=== PATIENT | female | born 1970 | race African-American/Black ===

== ENCOUNTER 2025-01-26 14:31 | Inpatient (IN) | payer MEDICAID, OTHER ==
[~2025-01-26] VITALS: Ht 175.3 cm; Wt 109.1 kg
[2025-01-26] MEDS ORDERED: PROPOFOL 200MG/20ML VIAL IV ONE (15:30)
[2025-01-26] MEDS: SODIUM CHLORIDE 0.9% 1,000 ML IV ONE (16:45)
[2025-01-26] MEDS: KETOROLAC 15MG/ML VIAL IV SCH (16:46)
[2025-01-26] MEDS: HYDROCODONE/ACETAMINOPHEN 5/325MG TABLET PO SCH (16:56)
[2025-01-26 17:21] VITALS: O2SAT 100
[2025-01-26] MEDS: PROPOFOL 10 MG/ML 100 ML IV PRN (17:21)
[2025-01-26 22:30] VITALS: BP 123/72; PULSE 58; RESP 18; TEMP 37.0852
[2025-01-26 22:34] LABS: HCG SCREEN NEGATIVE
[2025-01-26] MEDS ORDERED: LORA10CA PO (23:47)
[2025-01-26] MEDS ORDERED: FERR-71 MT (23:48)
[2025-01-27] VITALS: BP 125/75; PULSE 59; RESP 20; TEMP 36; O2SAT 100
[2025-01-27] MEDS ORDERED: ONDANSETRON HCL 4MG/2ML INJ IV PRN ×2 (00:15→12:15)
[2025-01-27] MEDS: MORPHINE SULFATE 2 MG/ML INJ (NOT FOR IM USE) IV PRN (00:25)
[2025-01-27] MEDS ORDERED: NALOXONE HCL 0.4MG/ML VIAL IV PRN (00:30)
[2025-01-27 04:00] VITALS: BP 110/58; PULSE 59; RESP 20; TEMP 36.5; O2SAT 100
[2025-01-27 07:05] LABS: BASOPHILS % 0.6 % (0.0-2.0); EOSINOPHILS % 2.8 % (0.0-5.0); HEMATOCRIT. 34.2 % (36.0-48.0); HEMOGLOBIN. 10.4 g/dL (12.0-16.0); LYMPHOCYTES % 31.5 % (20.0-50.0); MEAN PLATELET VOLUME 9.2 fl (7.4-10.4); MONOCYTES % 7.7 % (2.0-8.0); NEUTROPHILS % 57.4 % (40.0-76.0); PLATELET 200 x1000/uL (130-400); RED BLOOD CELL COUNT 5.07 mill/uL (4.2-5.4); RED CELL DISTRIBUTION WIDTH 16.4 % (11.6-14.6)
[2025-01-27 07:15] LABS: ADD RBC MORPHOLOGY YES
[2025-01-27 07:37] LABS: CREATININE 0.7 mg/dL (0.6-1.0)
[2025-01-27 07:39] LABS: UREA NITROGEN BLOOD 8 mg/dL (9-23)
[2025-01-27 07:57] VITALS: BP 126/77; PULSE 71; RESP 18; TEMP 36.3; O2SAT 100
[2025-01-27] MEDS ORDERED: BUPIVACAINE HCL/PF 0.5% (5MG/ML) 10ML ONE (09:05)
[2025-01-27] MEDS ORDERED: VANCOMYCIN HCL 1GM VIAL ONE (09:05)
[2025-01-27] MEDS ORDERED: BUPIVACAINE HCL/PF 0.25% (2.5MG/ML) 10ML ONE (09:36)
[2025-01-27] MEDS ORDERED: ACETAMINOPHEN 1000MG/100ML 100 ML IV ONE (09:36)
[2025-01-27] MEDS ORDERED: FAMOTIDINE 20MG/2ML VIAL IV ONE (09:36)
[2025-01-27] MEDS ORDERED: MIDAZOLAM HCL 2 MG/2 ML VIAL ONE (09:42)
[2025-01-27] MEDS ORDERED: FENTANYL CITRATE/PF 50MCG/ML 2ML VIAL ONE (09:42)
[2025-01-27] MEDS ORDERED: HYDROMORPHONE HCL/PF 1MG/ML INJ ONE ×2 (10:06→11:11)
[2025-01-27] MEDS ORDERED: DOCUSATE SODIUM 100MG CAPSULE PO PRN (10:15)
[2025-01-27] MEDS ORDERED: IPRATROPIUM/ALBUTEROL 0.5-3(2.5)MG/3ML NEB HHN PRN (10:15)
[2025-01-27] MEDS ORDERED: ACETAMINOPHEN 325MG TABLET PO PRN (10:15)
[2025-01-27] MEDS: PANTOPRAZOLE SODIUM 40 MG/VIAL IV SCH (10:15)
[2025-01-27] MEDS ORDERED: ONDANSETRON HCL 4MG/2ML INJ ONE (11:04)
[2025-01-27] MEDS ORDERED: DEXAMETHASONE 4MG/ML 1ML VIAL ONE (11:04)
[2025-01-27] MEDS ORDERED: KETOROLAC 30MG/ML VIAL ONE (11:04)
[2025-01-27] MEDS ORDERED: CEFAZOLIN SODIUM 1000MG/VIAL ONE (11:05)
[2025-01-27] MEDS ORDERED: PROPOFOL 200MG/20ML VIAL IV ONE (11:10)
[2025-01-27] MEDS ORDERED: HYDRALAZINE 20MG/ML VIAL IV PRN ×2 (12:15)
[2025-01-27] MEDS ORDERED: MEPERIDINE HCL/PF 25MG/ML CPJ IV PRN (12:15)
[2025-01-27] MEDS ORDERED: HYDROMORPHONE HCL/PF 1MG/ML INJ IV PRN (12:15)
[2025-01-27] MEDS ORDERED: LABETALOL 5MG/ML 4ML INJ IV PRN (12:15)
[2025-01-27] MEDS: CEFAZOLIN 1000MG PREMIX 50 ML IV SCH (15:55)
[2025-01-27 15:57] VITALS: BP 118/59; PULSE 71; RESP 18; TEMP 35.7; O2SAT 100
[2025-01-27] MEDS: DEXT 5%/0.45% NACL 1000ML 1,000 ML IV SCH (16:50)
[2025-01-27 17:55] LABS: COLOR URINE YELLOW (YELLOW); GLUCOSE URINE NEGATIVE (NEGATIVE); KETONES URINE NEGATIVE (NEGATIVE); LEUKOCYTE ESTERASE URINE NEGATIVE (NEGATIVE); NITRITE URINE POSITIVE (NEGATIVE); OCCULT BLOOD URINE NEGATIVE (NEGATIVE); PH URINE 5.5 (4.5-8.0); PROTEIN URINE NEGATIVE (NEGATIVE); SPECIFIC GRAVITY URINE 1.029 (1.005-1.030); UROBILINOGEN URINE 0.2 E.U./dL (0.2-1.0)
[2025-01-27 18:13] LABS: *AMPHETAMINES SCREEN URINE NEGATIVE (NEGATIVE)
[2025-01-27 18:14] LABS: *BARBITURATES SCREEN URINE NEGATIVE (NEGATIVE); *BENZODIAZEPINES SCREEN URINE PRESUMPTIVE POSITIVE (NEGATIVE); *COCAINE SCREEN URINE NEGATIVE (NEGATIVE); CANNABINOID URINE SCREEN PRESUMPTIVE POSITIVE (NEGATIVE); ECSTASY MDMA SCREEN URINE NEGATIVE (NEGATIVE); METHADONE URINE SCREEN NEGATIVE (NEGATIVE); OPIATES URINE SCREEN PRESUMPTIVE POSITIVE (NEGATIVE); PHENCYCLIDINE URINE SCREEN NEGATIVE (NEGATIVE)
[2025-01-27 18:42] LABS: CLARITY URINE SL HAZY (CLEAR)
[2025-01-27 18:43] LABS: BACTERIA URINE TRACE; RBC URINE NONE SEEN /hpf (0-2); SQUAMOUS EPITHELIAL CELL URINE 1+ /lpf (RARE/1+); WBC URINE 0-2 /hpf (0-2)
[2025-01-27] MEDS: HYDROCODONE/ACETAMINOPHEN 10/325MG TABLET PO PRN (18:59)
[2025-01-27 20:00] VITALS: BP 96/45; PULSE 72; RESP 18; TEMP 36.9; O2SAT 97
[2025-01-27 20:39] LABS: PLATELET ESTIMATE NORMAL
[2025-01-28] VITALS: BP 102/57; PULSE 69; RESP 20; TEMP 36.7; O2SAT 98
[2025-01-28 04:00] VITALS: BP 100/46; PULSE 66; RESP 18; TEMP 36.6; O2SAT 100
[2025-01-28] MEDS: ACETAMINOPHEN 325MG TABLET PO PRN (06:02)
[2025-01-28 08:00] VITALS: BP 130/71; PULSE 79; RESP 18; TEMP 36; O2SAT 99
[2025-01-28 08:51] LABS: INR 1.0
[2025-01-28 09:09] LABS: CREATININE 0.7 mg/dL (0.6-1.0); UREA NITROGEN BLOOD 5 mg/dL (9-23)
[2025-01-28 09:11] LABS: PHOSPHORUS 1.8 mg/dL (2.5-4.9)
[2025-01-28 09:30] LABS: BASOPHILS % 0.2 % (0.0-2.0); EOSINOPHILS % 0.0 % (0.0-5.0); HEMATOCRIT. 30.9 % (36.0-48.0); HEMOGLOBIN. 9.6 g/dL (12.0-16.0); LYMPHOCYTES % 15.2 % (20.0-50.0); MEAN PLATELET VOLUME 9.4 fl (7.4-10.4); MONOCYTES % 6.2 % (2.0-8.0); NEUTROPHILS % 78.4 % (40.0-76.0); PLATELET 164 x1000/uL (130-400); RED BLOOD CELL COUNT 4.57 mill/uL (4.2-5.4); RED CELL DISTRIBUTION WIDTH 16.6 % (11.6-14.6)
[2025-01-28 12:00] VITALS: BP 114/63; PULSE 70; RESP 18; TEMP 36; O2SAT 99
[2025-01-28 12:46] LABS: FOLIC ACID (FOLATE) SERUM 7.76 ng/mL (>5.38); VITAMIN B12 SERUM 408 pg/mL (211-911)
[2025-01-28] MEDS: LORATADINE 10MG TABLET PO SCH (14:18)
[2025-01-28] MEDS: POTASSIUM-SODIUM PHOSPHATE POWDER PACKET PO SCH (15:14)
[2025-01-28 16:08] VITALS: BP 122/69; PULSE 78; RESP 16; TEMP 36.3; O2SAT 97
[2025-01-28 16:33] VITALS: BP 122/69; PULSE 78; TEMP 97.4
== END 2025-01-28 19:00 | disposition home or self-care (01) | DRG 313 ==
LOC: ER 14:52 → EDBEDREQTM 20:58 → EDBEDREQ 20:58 → ENRESERV 21:45 → 7WST 22:20
PROVIDERS: ADMIT Internal Medicine; ATTEND Internal Medicine
PROC: 0QSH34Z Reposition Left Tibia with Internal Fixation Device, Percutaneous Approach (ICD-10-PCS; 2025-01-26)
PROC: 0QSK04Z Reposition Left Fibula with Internal Fixation Device, Open Approach (ICD-10-PCS; principal; 2025-01-27)
PROC: 0QSH04Z Reposition Left Tibia with Internal Fixation Device, Open Approach (ICD-10-PCS; 2025-01-27)
PROC: 0QSH04Z Reposition Left Tibia with Internal Fixation Device, Open Approach (ICD-10-PCS; 2025-01-27)
DX: S82.852A Displaced trimalleolar fracture of left lower leg, initial encounter for closed fracture (principal); M62.82 Rhabdomyolysis; D64.9 Anemia, unspecified; I10 Essential (primary) hypertension; W18.39XA Other fall on same level, initial encounter; Y93.51 Activity, roller skating (inline) and skateboarding; Y92.89 Other specified places as the place of occurrence of the external cause; Y99.8 Other external cause status; Z98.891 History of uterine scar from previous surgery
CPT/HCPCS: 27818; 36415; 73600; 73610; 76000; 80048; 80305; 81003; 82550; 82607; 82728; 82746; 83540; 83550; 83735; 84100; 84703; 85025; 93005; 96361; 96374; 97110; 97116; 97161; 97166; 97530; 99152; 99285; A4615; J0665; J0690; J1100; J1171; J1308; J1885; J2250; J2270; J2405; J2470; J2704; J3010; J3373; J3490; C1713; C1769; J0131

== ENCOUNTER 2025-02-14 10:39 | Emergency (ER) | payer OTHER ==
[~2025-02-14] VITALS: Ht 175.3 cm; Wt 103.0 kg
[~2025-02-14 10:39] MED LIST: FERR-71 MT; LORA10CA PO
[2025-02-14 11:02] VITALS: O2SAT 99
[2025-02-14] MEDS: BACITRACIN ZINC OINT UDPKT TOP ONE (11:48)
[2025-02-14 11:54] VITALS: BP 114/70; PULSE 77; RESP 18; TEMP 36.9; O2SAT 99
[2025-02-14] MEDS ORDERED: BO1 TP (11:54)
== END 2025-02-14 12:09 | disposition home or self-care (01) ==
LOC: ER 11:12
DX: S91.012D Laceration without foreign body, left ankle, subsequent encounter (principal); E78.00 Pure hypercholesterolemia, unspecified; Z98.890 Other specified postprocedural states; Z79.899 Other long term (current) drug therapy; X58.XXXD Exposure to other specified factors, subsequent encounter
CPT/HCPCS: 99282